=== PATIENT | female | born 2005 | race Two or more races ===

== ENCOUNTER 2024-12-09 16:26 | Emergency (ER) | payer MEDICAID, SELFPAY ==
[2024-12-09 16:27] VITALS: BMI 25.0
--- NOTE | 2024-12-09 16:29 | EKG_ITS ---
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
[2024-12-09 16:59] VITALS: BP 107/72; PULSE 94; RESP 18; TEMP 36.6; O2SAT 99
--- NOTE | 2024-12-09 17:10 | XR_ITS ---
Examination: PA chest single view TECHNIQUE: Upright PA chest single view Date and time: 12/09/2024 1735 hours INDICATIONS: Midsternal chest pain or shortness of breath today. FINDINGS: Normal heart size. Lungs are clear. No pneumonia or pulmonary edema. No pneumothorax. Osseous structures intact IMPRESSION: No active disease
--- NOTE | 2024-12-09 17:11 | PD.EDCHEST ---
ED Chest Pain RME/HPI General Chief Complaint: Chest Pain Stated Complaint: CHEST PAIN X1 WEEK Time Seen by Provider: 12/09/24 16:46 Arrival date/time: 12/09/24 16:26 This is a 19-year-old female with no medical history came in the emergency room emergently midsternal chest pain associated with mild shortness of breath but no palpitation no headache no dizziness or vomiting persistence of the symptoms this patient presented discharged from [emergency room patient denies any medical history Mode of arrival: ambulatory Limitations: no limitations Related Data Allergies Allergy/AdvReac Type Severity Reaction Status Date / Time ibuprofen Allergy Hives Verified 12/09/24 16:27 Review of Systems Review of Systems Systems Reviewed: All systems reviewed, normal except as documented Constitutional Constitutional: Reports system reviewed and no additional complaints, except as documented and Reports as per HPI Cardiovascular Cardiovascular: Reports system reviewed and no additional complaints, except as documented, Reports chest pain, Denies chest pain at rest, Denies chest pain with activity, Reports dyspnea, Denies dyspnea on exertion, Denies edema, Denies irregular heart rhythm, Denies leg edema, Denies lightheadedness, Denies orthopnea, Denies rapid heart rate, Denies slow heart rate and Denies syncope Respiratory Respiratory: Reports system reviewed and no additional complaints, except as documented, Reports as per HPI, Reports dyspnea and Denies dyspnea on exertion Gastrointestinal Gastrointestinal: Reports system reviewed and no additional complaints, except as documented, Reports as per HPI, Denies abdominal pain, Reports hematemesis, Denies nausea and Denies vomiting Musculoskeletal Musculoskeletal: Reports system reviewed and no additional complaints, except as documented and Reports as per HPI Neurologic Neurologic: Reports system reviewed and no additional complaints, except as documented, Reports as per HPI and Denies syncope Past Medical History Past Medical History CARDIAC: Negative Congestive Heart Failure RESPIRATORY: Negative Chronic Obstructive Pulmonary Disease (COPD) GENITOURINARY: Negative Renal Disease ENDOCRINE: Negative Diabetes Mellitus Type 1 or Diabetes Mellitus Type 2 Social History SMOKING STATUS: Never smoker ED Exam General Limitations: Present no limitations General appearance: Present alert and in no apparent distress Head Head exam: Present atraumatic Eye Eye exam: Present normal appearance, PERRL and EOMI ENT ENT exam: Present normal exam, normal oropharynx and mucous membranes moist Neck Neck exam: Present normal inspection, full ROM and trachea midline Chest Chest inspection: Present normal inspection and symmetric chest wall rise Respiratory Respiratory exam: Present normal lung sounds bilaterally Cardiovascular Cardiovascular exam: Present regular rate, normal rhythm and normal heart sounds Abdominal Exam Abdominal exam: Present soft and normal bowel sounds Extremities Exam Extremities exam: Present normal inspection and full ROM Back Exam Back exam: Present normal inspection and full ROM Neurological Exam Neurological exam: Present alert, oriented X3 and CN II-XII intact Psychiatric Psychiatric exam: Present normal affect and normal mood Skin Skin exam: Present warm, dry, intact and normal color Course Quality Measures none Orders Category Date Time Status EKG (ED ONLY) *Do not use* NOW Care 12/09/24 16:29 Completed EKG (ED Only) Stat Exams 12/09/24 16:29 Draft XR chest 1V portable Stat Exams 12/09/24 17:10 Completed CBC Stat Lab 12/09/24 17:28 Completed CMP [Comprehensive Metabolic Panel] Stat Lab 12/09/24 17:28 Completed HCG Qualitative,Urine Stat Lab 12/09/24 17:10 Ordered Troponin I Stat Lab 12/09/24 17:28 Completed Vital Signs Vital signs: Vital Signs Temperature 98 F 12/09/24 16:59 Pulse Rate 94 12/09/24 16:59 Respiratory Rate 18 12/09/24 16:59 Blood Pressure 107/72 12/09/24 16:59 Pulse Oximetry (%) 99 12/09/24 16:59 Oxygen Delivery Method Room Air 12/09/24 16:59 Oxygen saturation 99% on room air Chest Pain MDM Narrative MDM Narrative:: This is a 19-year-old female with no medical history came in the emergency room emergently midsternal chest pain associated with mild shortness of breath but no palpitation no headache no dizziness or vomiting persistence of the symptoms this patient presented discharged from [emergency room patient denies any medical history Physicial exam showed normal vital signs patient is not tacycardic not tacypneic blood pressure stable afebrile not hypoxic patient lung sounds are clear no crackles no rales noted Normal [heart normal rate regular rhythm no murmur patient had mild point tenderness on the midsternal suggested of constochondritis at the time of exam patient has no signs and symptoms of cardiopulmonary pathology his blood test showed CBC no leukocytosis no anemia CMP no electrolyte imbalance kidney and liver function is normal troponinnegative EKG showed heart rate 71 sinus rhythm and chest x-ray was also normal at this point patient will be discharged as chest pain of unknown etiology costochondritis patient was advised to take Tylenol/Motrin as needed for pain patient for symptoms. Follow-up with PCP in 2 days for reevaluation and to be referred to healthcare marketer for further evaluation and treatment of chest pain providers avoid echocardiogram and stress and holter monitor patient was disharged with comforatble conditionwith stable condition and pain fee. Walking stable Patient verbalized no further complain with the proposed management plan including the need to follow up with his/her primary care physician and and any specialist fif applicable. Discussed patient for any urgent condition or worsening sx He she needed to go to Emergency room of call 911 Patient is acknowledge the responsibility to follow up as instructed and to monitor his/her symptoms For any persistnce of the symtoms for more than 3-5 days retrun precaution advised Discussed the result of thetest and was given printed dsicahrge instruction Patient data External records reviewed:: [facility] previous records Clinical information provided by:: patient Social determinants that could affect healthcare access:: none Patient has the following chronic illnesses:: nonen How is presenting disease/condition affected by chronic disease/condition?: no chronic disease Evaluation data The following diagnostics were reviewed and interpreted by me:: lab results and radiology exam(s) Lab and/or radiology exams considered but not ordered:: Reviewed Interpretation Summary: Normal Medications / Prescriptions Medications or Prescriptions considered but not ordered:: Given Medication administrations:: Given Consultations Consultation(s) initiated? (list below): No Diagnosis Chest Pain Differential Diagnosis: atypical chest pain, costochondritis and chest pain Most likely diagnosis given after review of the tests above:: chst pain unknown etiology Admission Indicated Admission indicated?: not indicated Admission Request Was there a request for admission?: No Admission Attestation Admission request attestation: not indicated Disposition Plan Disposition Plan: Discharge Discharge Attestation Discharge Attestation: The patient and all family members were given an opportunity to ask questions and understood the discharge instructions. Discharge instructions specifically effects, indications for sooner follow up or return to the emergency department, and the expected course of current diagnosis. Patient condition: Stable Discharge Plan Plan Patient Disposition: HOME (Self Care) Patient condition on transfer: Stable Prescriptions/Referrals Referrals: Teja Ugalde FNP [Primary Care Provider] - In 1 week Problem List Clinical Impression: Chest pain of unknown etiology Patient/Caregiver Discharge Instructions Education Materials: ED Chest Pain, Uncertain Cause Additional Instructions: Follow-up with your primary care physician for evaluation for reevaluation and to be referred to podiatry for further evaluation and treatment since patient has an echocardiogram and holter monitor Print Language: Romanian Stand Alone Forms: [employer] Award Info., Patient Portal Info Letter 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
[2024-12-09 17:36] LABS: Basophils # (Auto) 0.1 Thou/mm3 (0.0-0.2); Basophils % (Auto) 1 % (0-2.5); Eosinophils # (Auto) 0.1 Thou/mm3 (0.0-0.5); Eosinophils % (Auto) 1 % (0-10); Hematocrit 32.4 % (36.0-46.0); Hemoglobin 10.6 g/dL (12.0-16.0); Immature Granulocytes % (Auto) 0 % (0-0); Immature Granulocytes Auto 0.02 Thou/mm3 (0.00-0.00); Lymphocytes # (Auto) 2.9 Thou/mm3 (1.0-4.8); Lymphocytes % (Auto) 36 % (10-50); Mean Corpuscular HGB Conc 32.7 g/dl (31.0-37.0); Mean Corpuscular Hemoglobin 24.5 pg (25.0-35.0); Mean Corpuscular Volume 75 fL (80-100); Monocytes # (Auto) 0.6 Thou/mm3 (0.0-0.8); Monocytes % (Auto) 7 % (0-12); Neutrophils # (Auto) 4.4 Thou/mm3 (1.8-7.7); Neutrophils % (Auto) 55 % (37-80); Nucleated Red Blood Cell % 0 /100 WBC (0); Platelet Count 362 Thou/mm3 (140-440); RDW Standard Deviation 44.3 fL (36.4-46.3); Red Blood Count 4.33 Miln/mm3 (4.00-5.20)
[2024-12-09 17:51] LABS: Alanine Aminotransferase 11 U/L (10-49); Albumin, Serum 4.5 gm/dL (3.5-5.0); Albumin/Globulin Ratio 1.5 (1.2-2.2); Alkaline Phosphatase 67 U/L (46-116); Anion Gap 7 (7-16); Aspartate Amino Transferase 18 U/L (0-34); BUN/Creatinine Ratio 10 Ratio (12-20); Bilirubin,Total 0.4 mg/dL (0.3-1.2); Blood Urea Nitrogen 7 mg/dL (9-23); Carbon Dioxide 25.6 mMol/L (20.0-31.0); Chloride 107 mMol/L (98-107); Creatinine (Component) 0.7 mg/dL (0.6-1.3); Estimated Creatinine Clearance 93.7 mL/min (>60); Globulin 3.1 gm/dL (2.3-3.5); Glucose 91 mg/dL (74-106); Osmolality,Calculated 277 (275-295); Potassium 3.7 mMol/L (3.4-5.1); Sodium 140 mMol/L (136-145); Total Protein 7.6 gm/dL (5.7-8.2); Troponin I < 0.002 ng/mL (0.0-0.045); eGFR > 60 See Note
== END 2024-12-09 19:22 | disposition home or self-care (01) ==
PROVIDERS: Nurse Practitioner Family; Emergency Provider Emergency Medicine; PCP Family Medicine
DX: R07.9 Chest pain, unspecified (principal)
CPT/HCPCS: 36415; 71045; 80053; 81025; 84484; 85025; 93005; 99283

== ENCOUNTER 2025-06-21 23:15 | Emergency (ER) | payer MEDICAID, SELFPAY ==
[2025-06-21 23:16] VITALS: BMI 25.0
[2025-06-21 23:30] VITALS: BP 114/76; PULSE 99; RESP 18; TEMP 36.9; O2SAT 98
--- NOTE | 2025-06-21 23:39 | PD.EDRME ---
Rapid Medical Screening Exam RME Arrival date/time: 06/21/25 23:15 This is a case of 19-year-old female who came into the emergency room due to left flank pain and left rib pain with a worsening of the symptoms this patient decided to sought consult here in the emergency ROOM Chief Complaint: General Adult/Misc Complain Time Seen by Provider: 06/21/25 23:39 Vital signs: Vital Signs Temperature 98.5 F 06/21/25 23:30 Pulse Rate 99 06/21/25 23:30 Respiratory Rate 18 06/21/25 23:30 Blood Pressure 114/76 06/21/25 23:30 Pulse Oximetry (%) 98 06/21/25 23:30 Oxygen Delivery Method Room Air 06/21/25 23:30 Exam: Moderate tenderness left RIB AND LEFT FLANK Clinical Impression: RIB AND FLANK PAIN
[2025-06-21 23:53] LABS: Collection Type, Urine Clean Catch
[2025-06-22 00:04] LABS: HCG Qualitative,Urine Negative
[2025-06-22 00:15] LABS: Bacteria,Urine Rare; Bilirubin,Urine Negative (Negative); Blood,Urine Negative (Negative); Clarity,Urine Clear (Clear/Hazy); Color,Urine Lt-Yellow (Lt Yel-Yel); Culture Indicated,Urine Not Indicated; Glucose, Urine Negative (Negative); Ketones,Urine Negative (Negative); Leukocyte Esterase,Urine Negative (Negative); Nitrite,Urine Negative (Negative); PH,Urine 6.5 (5.0-7.0); Protein,Urine Negative (Neg - Trace); RBC,Urine 1 /hpf (0-3); Specific Gravity,Urine 1.023 (1.001-1.035); Squamous Epithelial Cell,Urine 8 /hpf (0-5); Urobilinogen,Urine Negative mg/dL (0.0-1.0); WBC,Urine 1 /hpf (0-5)
--- NOTE | 2025-06-22 00:16 | XR_ITS ---
EXAMINATION: PA lateral chest 2 views TECHNIQUE: Upright PA lateral chest 2 views Date and time: June 22, 2025, 0033 hours INDICATIONS: Left flank pain beginning yesterday FINDINGS: Normal heart size Lungs are clear. The osseous structures are intact IMPRESSION: No active disease
[2025-06-22 00:41] LABS: Basophils # (Auto) 0.1 Thou/mm3 (0.0-0.2); Basophils % (Auto) 1 % (0-2.5); Eosinophils # (Auto) 0.3 Thou/mm3 (0.0-0.5); Eosinophils % (Auto) 4 % (0-10); Hematocrit 33.2 % (36.0-46.0); Hemoglobin 10.3 g/dL (12.0-16.0); Immature Granulocytes Auto 0.02 Thou/mm3 (0.00-0.00); Lymphocytes # (Auto) 3.9 Thou/mm3 (1.0-4.8); Lymphocytes % (Auto) 43 % (10-50); Mean Corpuscular HGB Conc 31.0 g/dl (31.0-37.0); Mean Corpuscular Hemoglobin 24.0 pg (25.0-35.0); Mean Corpuscular Volume 77 fL (80-100); Monocytes # (Auto) 0.7 Thou/mm3 (0.0-0.8); Monocytes % (Auto) 8 % (0-12); Neutrophils # (Auto) 4.0 Thou/mm3 (1.8-7.7); Neutrophils % (Auto) 44 % (37-80); Nucleated Red Blood Cell # 0.00 Thou/mm3 (0.00-0.00); Nucleated Red Blood Cell % 0 /100 WBC (0); Platelet Count 320 Thou/mm3 (140-440); RDW Standard Deviation 46.5 fL (36.4-46.3); Red Blood Count 4.29 Miln/mm3 (4.00-5.20); White Blood Count 9.0 Thou/mm3 (4.5-11.0)
[2025-06-22 00:58] LABS: Alanine Aminotransferase 13 U/L (10-49); Albumin, Serum 4.8 gm/dL (3.5-5.0); Albumin/Globulin Ratio 1.7 (1.2-2.2); Alkaline Phosphatase 62 U/L (46-116); Anion Gap 10 (7-16); Aspartate Amino Transferase 17 U/L (0-34); BUN/Creatinine Ratio 12 Ratio (12-20); Bilirubin,Total 0.2 mg/dL (0.3-1.2); Blood Urea Nitrogen 7 mg/dL (9-23); Calcium 8.9 mg/dL (8.3-10.6); Calcium (Corrected) 8.9 mg/dL (8.5-10.1); Carbon Dioxide 24.3 mMol/L (20.0-31.0); Chloride 108 mMol/L (98-107); Creatinine (Component) 0.6 mg/dL (0.6-1.3); Estimated Creatinine Clearance 109.3 mL/min (>60); Globulin 2.9 gm/dL (2.3-3.5); Glucose 97 mg/dL (74-106); Lipase 32 U/L (12-53); Osmolality,Calculated 281 (275-295); Potassium 3.6 mMol/L (3.4-5.1); Sodium 142 mMol/L (136-145); Total Protein 7.7 gm/dL (5.7-8.2); eGFR > 60 See Note
[2025-06-22 01:20] VITALS: BP 107/69; PULSE 86; RESP 16; TEMP 36.8; O2SAT 99
--- NOTE | 2025-06-22 02:03 | PD.EDADULT ---
ED General RME/HPI General Chief complaint: General Adult/Misc Complain Stated complaint: R FLANK/RIB AREA PAIN Time Seen by Provider: 06/21/25 23:39 Arrival date/time: 06/21/25 23:15 Limitations: no limitations RME / HPI RME / HPI narrative: 06/21/25 23:15 This is a case of 19-year-old female who came into the emergency room due to left flank pain and left rib pain with a worsening of the symptoms this patient decided to sought consult here in the emergency ROOM Dr. Andrade's Main ED Evaluation: 19yo female with no significant past medical history presents to the ED for a chief complaint of left rib pain x 1 day. No radiation or migration. Patient describes her pain as sharp in nature, reporting it worsens when she takes a deep breath. Patient last took Tylenol at 1500 without any improvement of symptoms. Patient denies any fever, chills, N/V, constipation, abdominal pain, or any other associated symptoms. Related Data Allergies Allergy/AdvReac Type Severity Reaction Status Date / Time ibuprofen Allergy Hives Verified 06/21/25 23:20 Review of Systems Review of Systems Systems Reviewed: All systems reviewed, normal except as documented ED Exam General Limitations: Present no limitations General appearance: Present alert and in no apparent distress Head Head exam: Present atraumatic Eye Eye exam: Present normal appearance, PERRL and EOMI ENT ENT exam: Present normal exam, normal oropharynx and mucous membranes moist Neck Neck exam: Present normal inspection, full ROM and trachea midline Chest Chest inspection: Present normal inspection and symmetric chest wall rise Respiratory Respiratory exam: Present normal lung sounds bilaterally Cardiovascular Cardiovascular exam: Present regular rate, normal rhythm and normal heart sounds Abdominal Exam Abdominal exam: Present soft and normal bowel sounds Extremities Exam Extremities exam: Present normal inspection and full ROM Back Exam Back exam: Present normal inspection and full ROM Neurological Exam Neurological exam: Present alert, oriented X3 and CN II-XII intact Psychiatric Psychiatric exam: Present normal affect and normal mood Skin Skin exam: Present warm, dry, intact and normal color Course Course Course Narrative: CXR is ordered for determining the etiology of rib pain. Quality Measures none Orders Category Date Time Status CXR2 [XR chest 2V] Stat Exams 06/22/25 00:16 Taken CBC Stat Lab 06/22/25 00:26 Completed CMP [Comprehensive Metabolic Panel] Stat Lab 06/22/25 00:26 Completed HCG Qualitative,Urine Stat Lab 06/21/25 23:40 Completed Lipase Stat Lab 06/22/25 00:26 Completed Urinalysis, C/S if Indicated Stat Lab 06/21/25 23:40 Completed Acetaminophen Tab [Tylenol Tab] Med 06/22/25 02:00 Discontinued 1,000 mg PO X1 ONE Vital Signs Vital signs: Vital Signs Temperature 98.5 F 06/21/25 23:30 Pulse Rate 99 06/21/25 23:30 Respiratory Rate 18 06/21/25 23:30 Blood Pressure 114/76 06/21/25 23:30 Pulse Oximetry (%) 98 06/21/25 23:30 Oxygen Delivery Method Room Air 06/21/25 23:30 Discharge Plan Plan Patient Disposition: HOME (Self Care) Patient condition on transfer: Stable Prescriptions/Referrals Referrals: Teja Ugalde FNP [Primary Care Provider] - 06/24/25 Problem List Clinical Impression: Flank pain Patient/Caregiver Discharge Instructions Education Materials: ED Pain, Acute, Uncertain Cause Additional Instructions: Please see your primary care the next 48 to 72 hours for recheck. Return to emergency department for worsening symptoms, or any other concerns. Print Language: Comoran Stand Alone Forms: [employer] Award Info., Patient Portal Info Letter MDM Narrative MDM hospital course (for use when minimal MDM required): Scribe Attestation: 06/22/25 - Neha Hurt am scribing for and in the presence of Dr. Andrade. Differential diagnosis includes nausea, viral syndrome, dehydration, musculoskeletal, The patient presents with atypical flank pain. The patient has no dysuria and otherwise has no CVA tenderness on exam. Review of her labs show that she has a white count of 9 and otherwise chronic anemia. UA is negative. Otherwise electrolytes show no abnormalities of her liver function test. All labs are reviewed interpreted by me. Patient is given strict return precautions. Patient can take Motrin Tylenol as needed for pain. Clinical Information Provided by: patient Medical Records reviewed [facility] (Per chart review, patient was seen here on 12/09/24 for chest pain.) Meds/Rx considered, not ordered None Labs/Rad/Tests considered, not ordered None Chronic Illness/Social Conditions which may negatively complicate care or outcome(s)-explain: None or not applicable Labs Labs: interpreted by me Lab(s) Interpretation(s): WBC normal, HnH stable at 10.8/33.2, CMP normal, Lipase normal, UA unremarkable, HCG negative. Imaging Imaging interpretation: interpreted by me Imaging Interpretation(s): CXR is negative for any infiltrates, pleural effusions, cardiomegaly, fractures, or any other cardiopulmonary findings, according to my interpretation. Medication Administration(s) Medication Administration History Discontinued Medications Acetaminophen (Acetaminophen 325 Mg Tablet) 1,000 mg PO X1 ONE Stop: 06/22/25 02:01 Last Admin: 06/22/25 02:11 Dose: 1,000 mg Documented By: SF see above Diagnosis Differential Diagnosis ED Complaint MDM: pancreatitis, musculoskeletal pain, pneumonia
[2025-06-22] MEDS: ACETAMINOPHEN 325 MG TABLET 1000 MG PO (02:11)
[2025-06-22 02:29] VITALS: RESP 16
== END 2025-06-22 02:30 | disposition home or self-care (01) ==
PROVIDERS: Emergency Provider Emergency Medicine; PCP Family Medicine
DX: R10.A2 Flank pain, left side (principal)
CPT/HCPCS: 36415; 71046; 80053; 81001; 81025; 83690; 85025; A9270